=== PATIENT | male | born 1930 | race Caucasian/White ===

== ENCOUNTER 2017-05-21 13:43 | Emergency (ER) | payer MEDICARE ==
[2017-05-21 14:32] LABS: BASOPHILS 0.1 % (0-2); EOSINOPHILS 0.9 % (0-7); HEMATOCRIT 26.6 % (42.0-54.0); HEMOGLOBIN 8.2 g/dL (13.5-17.5); IMMATURE GRANULOCYTES 0.5 % (0-5); LYMPHOCYTES 6.5 % (15-50); MCH 28.5 pg (26.0-34.0); MCHC 30.8 g/dL (31.0-37.0); MCV 92.4 fL (80.0-100.0); MEAN PLATELET VOLUME 9.3 fL (7.4-10.4); MONOCYTES 0.9 % (2-11); NEUTROPHILS 91.1 % (40-80); RBC 2.88 10x6/uL (4.20-6.10); RDW 15.3 % (11.5-14.5); WBC 7.5 10x3/uL (4.8-10.8)
[2017-05-21 14:33] LABS: PLATELET COUNT 329 10x3/uL (130-400)
[2017-05-21 14:47] LABS: INR 1.5 (0.85-1.17); PROTIME 17.7 SECONDS (11.6-15.0)
[2017-05-21 14:49] LABS: ALBUMIN 2.7 g/dL (3.4-5.0); ANION GAP 12.4 mmol/L (8-16); BILIRUBIN - TOTAL 0.41 mg/dL (0.2-1.3); CALCIUM 8.2 mg/dL (8.5-10.1); CREATININE - SERUM 1.2 mg/dL (0.6-1.3); POTASSIUM - SERUM 4.4 mmol/L (3.5-5.1); PROTEIN - SERUM 6.3 g/dL (6.4-8.2)
== END 2017-05-21 17:00 | disposition home or self-care (01) ==
LOC: D.ER 13:43
PROVIDERS: Emergency Medicine
DX: D64.9 Anemia, unspecified (principal); K92.1 Melena; Z79.01 Long term (current) use of anticoagulants; Z86.718 Personal history of other venous thrombosis and embolism; J44.9 Chronic obstructive pulmonary disease, unspecified; I10 Essential (primary) hypertension

== ENCOUNTER 2017-05-28 12:50 | Outpatient (CLI) | payer MEDICARE | END 2017-05-28 20:40 | disposition home or self-care (01) | LOC: D.OPS 12:50 | DX: D64.9 Anemia, unspecified (principal) ==

== ENCOUNTER 2017-07-02 09:14 | Outpatient (CLI) | payer MEDICARE ==
[~2017-07-02] VITALS: Ht 177.8 cm; Wt 85.9 kg
[2017-07-02 11:27] VITALS: Ht 177.8 cm; Wt 85.9 kg
== END 2017-07-02 18:21 | disposition home or self-care (01) ==
LOC: D.OPS 09:14
DX: R71.0 Precipitous drop in hematocrit (principal)

== ENCOUNTER 2017-07-23 08:30 | Outpatient (CLI) | payer MEDICARE ==
[~2017-07-23] VITALS: Ht 177.8 cm; Wt 85.9 kg
[2017-07-23 09:10] VITALS: Ht 177.8 cm; Wt 85.9 kg
== END 2017-07-23 15:15 | disposition home or self-care (01) ==
LOC: D.OPS 08:30
DX: D64.9 Anemia, unspecified (principal)